=== PATIENT | female | born 1960 | race Two or more races ===

== ENCOUNTER 2021-09-07 11:58 | Outpatient (REF) | payer BC, SELFPAY ==
--- NOTE | ~2021-09-07 | XR_ITS ---
EXAMINATION: XR KNEES, STANDING AP XR KNEE, RIGHT XR KNEE, LEFT CLINICAL INFORMATION: Bilateral knee pain COMPARISON: None TECHNIQUE: Standing AP view of both knees is performed. In addition, each knee is imaged in lateral and axial patella views. FINDINGS: Right: No fracture, dislocation, or suprapatellar effusion. Normal bony mineralization. No destructive process. No focal joint narrowing or erosive change or subchondral sclerosis. There is mild spurring at the quadriceps insertion patella. Hoffa's fat pad unremarkable. No definite patella lateralization. Left: No fracture, dislocation, or definite suprapatellar effusion. Normal bony mineralization. No destructive process. No focal joint narrowing or erosive change or subchondral sclerosis. There is mild spurring at the quadriceps insertion patella. Hoffa's fat pad unremarkable. No patella lateralization. XR/XR knee RT 2V IMPRESSION: 1. Mild bilateral quadriceps insertion patella. 2. No focal joint narrowing or erosive change.
--- NOTE | ~2021-09-07 | XR_ITS ---
EXAMINATION: XR KNEES, STANDING AP XR KNEE, RIGHT XR KNEE, LEFT CLINICAL INFORMATION: Bilateral knee pain COMPARISON: None TECHNIQUE: Standing AP view of both knees is performed. In addition, each knee is imaged in lateral and axial patella views. FINDINGS: Right: No fracture, dislocation, or suprapatellar effusion. Normal bony mineralization. No destructive process. No focal joint narrowing or erosive change or subchondral sclerosis. There is mild spurring at the quadriceps insertion patella. Hoffa's fat pad unremarkable. No definite patella lateralization. Left: No fracture, dislocation, or definite suprapatellar effusion. Normal bony mineralization. No destructive process. No focal joint narrowing or erosive change or subchondral sclerosis. There is mild spurring at the quadriceps insertion patella. Hoffa's fat pad unremarkable. No patella lateralization. XR/XR knee LT 2V IMPRESSION: 1. Mild bilateral quadriceps insertion patella. 2. No focal joint narrowing or erosive change.
--- NOTE | ~2021-09-07 | XR_ITS ---
EXAMINATION: XR KNEES, STANDING AP XR KNEE, RIGHT XR KNEE, LEFT CLINICAL INFORMATION: Bilateral knee pain COMPARISON: None TECHNIQUE: Standing AP view of both knees is performed. In addition, each knee is imaged in lateral and axial patella views. FINDINGS: Right: No fracture, dislocation, or suprapatellar effusion. Normal bony mineralization. No destructive process. No focal joint narrowing or erosive change or subchondral sclerosis. There is mild spurring at the quadriceps insertion patella. Hoffa's fat pad unremarkable. No definite patella lateralization. Left: No fracture, dislocation, or definite suprapatellar effusion. Normal bony mineralization. No destructive process. No focal joint narrowing or erosive change or subchondral sclerosis. There is mild spurring at the quadriceps insertion patella. Hoffa's fat pad unremarkable. No patella lateralization. XR/XR knee standing BI IMPRESSION: 1. Mild bilateral quadriceps insertion patella. 2. No focal joint narrowing or erosive change.
== END 2021-09-07 11:59 | disposition home or self-care (01) ==
LOC: HO.HOSX 11:58
PROVIDERS: Visit Provider Physician Assistant
DX: M17.12 Unilateral primary osteoarthritis, left knee (principal); M25.561 Pain in right knee
CPT/HCPCS: 73560; 73565